=== PATIENT | female | born 1945 | race Caucasian/White ===

== ENCOUNTER 2016-11-15 11:30 | Emergency (ER) | payer MEDICARE ==
[~2016-11-15 11:30] MED LIST: CELEXA20 MG PO; NORVASC PO; ST. JOSEPH ASPI81 M3 PO; ZOCOR20 MG PO
== END 2016-11-15 12:22 | disposition home or self-care (01) ==
LOC: SED 11:30
DX: K11.20 Sialoadenitis, unspecified (principal); I10 Essential (primary) hypertension; Z85.3 Personal history of malignant neoplasm of breast; Z79.82 Long term (current) use of aspirin; Z79.899 Other long term (current) drug therapy; Z88.8 Allergy status to other drugs, medicaments and biological substances
CPT/HCPCS: 99283